=== PATIENT | male | born 2000 ===

== ENCOUNTER 2021-03-07 01:27 | Emergency (ER) | payer OTHER ==
[~2021-03-07] VITALS: Ht 177.8 cm; Wt 102.1 kg
== END 2021-03-07 02:34 | disposition home or self-care (01) ==
LOC: ER 01:27
DX: S61.212A Laceration without foreign body of right middle finger without damage to nail, initial encounter (principal); W25.XXXA Contact with sharp glass, initial encounter
CPT/HCPCS: 12001; 73140; 99283-25